=== PATIENT | female | born 1980 | race Caucasian/White ===

== ENCOUNTER 2016-10-21 06:28 | Day surgery (SDC) | payer BC ==
--- NOTE | 2016-10-21 07:11 | PCM.PREANE ---
Preanesthetic Assessment - Anesthesia/Transfusion/Family Hx Anesthesia History: Prior Anesthesia Reaction Type of Anesthesia Reaction: Excessive Nausea/Vomiting Transfusion History: No Prior Transfusion(s) - Review of Systems General: No Symptoms Pulmonary: No Symptoms Cardiovascular: No Symptoms Gastrointestinal: No symptoms Neurological: No Symptoms Other: Reports: None - Physical Assessment O2 Sat by Pulse Oximetry: 98 Respiratory Rate: 16 Vital Signs: Last Vital Signs Temp 36.6 C 10/21/16 06:37 Pulse 73 10/21/16 06:37 Resp 16 10/21/16 06:37 BP 129/75 10/21/16 06:37 Pulse Ox 98 10/21/16 06:37 Height: 1.68 m Weight: 79.379 kg ASA Class: 2 Mental Status: Alert & Oriented x3 Airway Class: Mallampati = 2 Dentition: Reports: Normal Dentition Thyro-Mental Finger Breadths: 3 Mouth Opening Finger Breadths: 3 ROM/Head Extension: Full Lungs: Clear to auscultation, Normal respiratory effort - Allergies Allergies/Adverse Reactions: Allergies Allergy/AdvReac Type Severity Reaction Status Date / Time amoxicillin Allergy Rash Verified 10/19/16 11:15 - Blood Blood Available: No - Anesthesia Plan Pre-Op Medication Ordered: None - Acknowledgements Anesthesia Type Planned: General Anesthesia Pt an Appropriate Candidate for the Planned Anesthesia: Yes Alternatives and Risks of Anesthesia Discussed w Pt/Guardian: Yes Pt/Guardian Understands and Agrees with Anesthesia Plan: Yes PreAnesthesia Questionnaire HEENT History: Reports: Sinusitis Other HEENT History: nasal septal perferation and oropharyngeal papilloma Respiratory History: Reports: Asthma (mild, slightly congested from yesterday) Psychiatric History: Reports: Anxiety (situational anxiety) Dermatologic History: Reports: Other (see below) Other Dermatologic History: acne - Past Surgical History Head Surgeries/Procedures: Reports: None HEENT Surgical History: Reports: LASIK, Tonsillectomy - SUBSTANCE USE Smoking Status *Q: Former Smoker (quit 8 months ago) Tobacco Use Within Last Twelve Months: No Recreational Drug Use History: No - HOME MEDS Home Medications: Home Meds 5-Hydroxytryptophan [5-Htp] 2 tab PO DAILY 10/19/16 [History] Activated Charcoal [Charcoal, Activated] 280 mg PO ASDIRECTED 10/19/16 [History] Albuterol [Proventil HFA] 1 - 2 puff INH ASDIRECTED PRN 10/19/16 [History] Eszopiclone [Lunesta] 3 mg PO DAILY 10/19/16 [History] Fish Oil/Ucon-3 Fatty Acids [Fish Oil 1,000 MG] 1 tab PO DAILY 10/19/16 [ History] Gluc/Armond-Msm#2/C/D3/Benitez/Born [Pfuyxvvynr-Asjjyvddlwz-HVE] 3 tab PO DAILY 10/19 [History] Glutamine [l-Glutamine] 1 tab PO DAILY 10/19/16 [History] Lactobacillus Acidophilus [Probiotic] 1 tab PO DAILY 10/19/16 [History] Milk Thistle Seed Extract [Milk Thistle 140 MG] 140 mg PO DAILY 10/19/16 [ History] Multivitamin [Multivitamins] 3 tab PO DAILY 10/19/16 [History] Simply Saline 1 spray NASBOTH ASDIRECTED 10/19/16 [History] Turmeric Root Extract [Turmeric] 2 tab PO DAILY 10/19/16 [History] Venlafaxine [Effexor XR] 0.5 tab PO DAILY 10/19/16 [History]
[2016-10-21] MEDS ORDERED: Oxymetazoline 0.05% Nasal Spray 15 ML Bottle ONE ×2 (07:26→08:30)
[2016-10-21] MEDS ORDERED: Lidocaine 2% with EPINEPHrine 1:100,000 20 ML MDV ONE (07:26)
[2016-10-21] MEDS ORDERED: Lidocaine 2% 5 ML SDV ONE (07:36)
[2016-10-21] MEDS ORDERED: Propofol 200 MG/20 ML SDV ONE (07:36)
[2016-10-21] MEDS ORDERED: fentaNYL 100 MCG/2 ML SDV ONE ×2 (07:36→08:39)
[2016-10-21] MEDS ORDERED: Midazolam 1 MG/ML 2 ML SDV ONE (07:36)
[2016-10-21] MEDS ORDERED: Rocuronium 10 MG/ML 10 ML Syringe ONE (07:36)
[2016-10-21] MEDS ORDERED: Succinylcholine/Normal Saline 200 MG/10 ML Syringe ONE (07:36)
[2016-10-21] MEDS ORDERED: Dexamethasone 4 MG/ML 5 ML MDV ONE (07:38)
[2016-10-21] MEDS ORDERED: fentaNYL 100 MCG/2 ML SDV IVPUSH PRN (07:44)
--- NOTE | 2016-10-21 07:55 | PCM.HPR ---
H & P Addendum review - H & P Addendum Review Date of Original H & P: 10/12/16 Date Reviewed: 10/21/16 Time Reviewed: 07:50 Patient was examined: No Changes
[2016-10-21] MEDS ORDERED: Bupivacaine 0.25%/EPINEPHrine 1:200,000 10 ML SDV ONE (08:07)
[2016-10-21] MEDS ORDERED: Ketorolac 30 MG/ML SDV ONE (08:48)
[2016-10-21] MEDS ORDERED: Ondansetron 4 MG/2 ML SDV ONE (08:48)
--- NOTE | 2016-10-21 09:18 | PCM.POSTAN ---
POST ANESTHESIA ASSESSMENT - MENTAL STATUS Mental Status: alert, oriented - RESPIRATORY Respiratory Status: respiratory rate WNL, airway patent, O2 saturation stable - CARDIOVASCULAR CV Status: pulse rate WNL, blood pressure stable - GASTROINTESTINAL GI Status: no symptoms - POST OP HYDRATION Hydration Status: adequate & stable
--- NOTE | 2016-10-21 09:36 | PCM.OPNOTE ---
- General Post-Op/Procedure Note Date of Surgery/Procedure: 10/21/16 Condition: Good Free Text/Narrative:: Intake & Output 10/20/16 10/21/16 10/21/16 22:59 06:59 14:59 Intake Total 1550 Balance 1550 Diagnosis: Mass Left oropharynx; Nasal septal perforation Procedure: Excision of mass Left oropharynx; Nasal septal perforation biopsy Surgeon: Jael Sarmiento MD Anesthesia: GA Anesthesiologist: Ar Nguyen Date of procedure: 10/21/2016 Indications: Mass Left oropharynx; Nasal septal perforation Findings: Papillary mass L palate - approx 4 mm X 4 mm; 1/3 distance between the base of uvula and base tongue, with partial attachment to the nasopharyngeal aspect of palatal mucosa; Nose - approx 1.5 cm X 1 cm ant nasal septal perforation - clean edges. Operation Details: An informed consent was obtained. A time out was performed and the patient was brought back to the operating room. General anesthesia was administered with an endotracheal tube. Patient was appropriately positioned on the operating table. An appropriately sized Radha Surendra mouth gag was positioned and suspended from a Jay stand. The oropharyngeal site of mass was injected with 0.25 % Marcaine w 1: 200, 000 epinephrine - 2.5 mls was injected. The mass was grasped with a forceps and removed with a Monopolar needle point at a setting of 10. Hemostasis was achieved with bipolar at a setting of 15W. The mucosal ends were sutured with 3.0 vicryl. Mouth gag was removed the oral cavity was inspected. Lips gums and teeth were intact. Lubricating jelly was applied to the lips. The nasal cavity was examined - findings as above. It was packed with pledgets soaked in Oxymetazoline - 0.05% and removed after an adequate period of decongestion. 0.25 % Marcaine w 1: 200, 000 epinephrine - 0.5 mls was injected into the edges of perforation. Biopsy was obtained with a through cut forceps. Hemostasis was achieved with Bipolar. Bacitracin oint was applied. All specimens sent for histopathology. This concluded the procedure.The patient was turned over to the anesthesiologist for recovery. Specimens: Oropharyngeal mass; nasal septal perforation biopsy. IV fluids: above Blood loss : 2ml Blood products: nil Disposition: PACU for recovery Follow up: 1 week
[2016-10-21] MEDS ORDERED: Scopolamine 1.5 MG Transdermal Patch TRDERM PRN (09:51)
[2016-10-21 11:21] VITALS: BP 122/68
== END 2016-10-21 10:40 | disposition home or self-care (01) ==
LOC: MW.SDS 06:28
PROVIDERS: ATTEND Otolaryngology
PROC: 0CBM7ZZ Excision of Pharynx, Via Natural or Artificial Opening (ICD-10-PCS; principal; 2016-10-21)
DX: D10.5 Benign neoplasm of other parts of oropharynx (principal); J34.89 Other specified disorders of nose and nasal sinuses; J45.909 Unspecified asthma, uncomplicated; F41.9 Anxiety disorder, unspecified; Z87.891 Personal history of nicotine dependence; Z88.0 Allergy status to penicillin; Z79.899 Other long term (current) drug therapy; Z90.89 Acquired absence of other organs; Z98.890 Other specified postprocedural states
CPT/HCPCS: 30100; 42808; 81025; 88304; 88305; A9270; J1100; J1885; J2250; J2405; J3010; 00170; J2704